=== PATIENT | male | born 1970 | race African-American/Black ===

== ENCOUNTER 2020-07-26 15:29 | Emergency (ER) | payer BC ==
[~2020-07-26] VITALS: Ht 177.8 cm; Wt 88.9 kg
[2020-07-26 15:33] VITALS: BP_SYST 145
[2020-07-26 18:17] VITALS: BP_SYST 145
== END 2020-07-26 18:17 | disposition home or self-care (01) ==
LOC: SED 15:29
DX: S61.012A Laceration without foreign body of left thumb without damage to nail, initial encounter (principal); W26.0XXA Contact with knife, initial encounter; Y93.89 Activity, other specified; Y92.89 Other specified places as the place of occurrence of the external cause; Y99.8 Other external cause status
CPT/HCPCS: 99282